=== PATIENT | male | born 1965 ===

== ENCOUNTER 2022-05-22 08:42 | Emergency (ER) | payer OTHER, SELFPAY ==
[2022-05-22 08:54] VITALS: BP 156/89; PULSE 63; RESP 12; TEMP 36.4; O2SAT 100
--- NOTE | 2022-05-22 09:04 | ED.EXTPRO ---
HPI - Extremity Problem General Chief complaint: Extremity Problem,Nontraumatic Stated complaint: Right Elbow Pain Time Seen by Provider: 05/22/22 09:13 Source: patient and RN notes reviewed Mode of arrival: ambulatory Limitations: no limitations History of Present Illness HPI Narrative: 57-year-old male presents to concern for several month history of pain and tenderness above his right elbow. 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 He reports he has been taking 800 mg ibuprofen 1000 mg Tylenol daily for chronic shoulder pain that has not been helping his current elbow pain. He reports he does repetitive movements that heavy lifting at work. He is right-handed. He denies any injury or trauma. He denies swelling, bruising, redness, warmth, open skin. He reports he is also worried his blood pressure is high, he normally does not high blood pressure, his heart attack in the past. He reports he follows up with primary care provider every 3 months. MD Complaint: extremity pain Related Data Home Medications Medication Instructions Recorded Confirmed rosuvastatin 20 mg tablet 20 mg DIRECTED 05/22/22 05/22/22 Allergies Allergy/AdvReac Type Severity Reaction Status Date / Time No Known Allergies Allergy Mild Verified 03/08/17 12:32 Review of Systems Review of Systems: CONSTITUTIONAL: Denies malaise, chills, sweats, or fever. CARDIOVASCULAR: Denies chest pain, palpitations, or edema. RESPIRATORY: Denies cough or dyspnea. SKIN: Denies rash or itching, bruising, redness, swelling. MUSCULOSKELETAL: Reports right elbow pain NEUROLOGIC: Denies numbness, weakness All systems reviewed & are unremarkable except as noted in HPI and below PMFSH Social History Social History Smoking status: Never smoker Comments At time of signature, agree with nursing past medical, surgical, social and family history. There is no relevant family history pertinent to the presenting complaint Exam Narrative: GENERAL: Well-appearing, well-nourished, and in no acute distress. HEAD: Normocephalic, atraumatic. EYES: PERRLA, conjunctivae clear NECK: Supple. CHEST: Speaks in full sentences. No respiratory distress. HEART: Regular rate and rhythm. Normal and equal peripheral pulses. EXTREMITIES: Right elbow, hand, digits have normal strength and sensation, normal range of motion. No edema or ecchymosis. 5/5 strength with digit flexion and extension. Normal sensation with sensitivity to light touch and pain. Mild medial tenderness above the elbow. No open wounds, no skin tenting, no devitalized tissue or atrophy, no trophic changes, no obvious deformity, alignment normal, nearby joints and structures intact. Distal pulses palpable and equal bilaterally, skin warm, dry, pink. Capillary refill less than 3 seconds. SKIN: Warm, dry, no rash. NEURO: Alert and oriented x3. PSYCH: Normal mood and affect Course Course Emergency Course: Patient is aware of diagnosis, understands and agrees to treatment plan. Anticipatory guidance given. Patient agrees to follow-up as directed and is aware of reasons to seek care at the emergency department. Portions of this record may have been created with voice recognition software Level of Care: Express Care Visit Vital Signs Vital signs: Vital Signs Temperature 97.5 F L 05/22/22 08:54 Pulse Rate 63 05/22/22 08:54 Respiratory Rate 12 05/22/22 08:54 Blood Pressure 156/89 H 05/22/22 08:54 Pulse Oximetry 100 05/22/22 08:54 Oxygen Delivery Room Air 05/22/22 08:54 Temperature 97.5 F L 05/22/22 08:54 Pulse Rate 63 05/22/22 08:54 Respiratory Rate 12 05/22/22 08:54 Blood Pressure 156/89 H 05/22/22 08:54 Pulse Oximetry 100 05/22/22 08:54 Oxygen Delivery Room Air 05/22/22 08:54 Reviewed. MDM - Extremity (Nontraumatic) MDM Narrative Medical decision making narrative: Patients pain is consist
== END 2022-05-22 09:40 | disposition home or self-care (01) ==
PROVIDERS: Emergency Provider Nurse Practitioner; PCP Internal Medicine
DX: M77.01 Medial epicondylitis, right elbow (principal); E78.00 Pure hypercholesterolemia, unspecified; Z95.5 Presence of coronary angioplasty implant and graft; I25.2 Old myocardial infarction
CPT/HCPCS: 99203; G0463

== ENCOUNTER 2022-05-25 12:48 | Emergency (ER) | payer OTHER, SELFPAY ==
[2022-05-25 13:58] VITALS: BP 130/88; PULSE 69; RESP 20; TEMP 36.6; O2SAT 100
--- NOTE | 2022-05-25 14:52 | ED.GENADULT ---
HPI - General Adult General Chief complaint: Unspecified Stated complaint: Right Elbow Pain Source: patient Mode of arrival: ambulatory Limitations: no limitations History of Present Illness HPI narrative: Patient presents for evaluation of right elbow pain. He is requesting a note to keep him off of work through Thursday of this next week. He was seen here on 05/22/2022 was diagnosed with epicondylitis. He was given some steroids which she has been taking for his pain. Pain has improved slightly. He also purchased a splint which he has been wearing. He rates his current pain as 6/10 in severity. Pain is worse with movement. He is right hand dominant. He does repetitive movements at work and believes this is contributing to his pain. No additional complaints or concerns. Related Data Home Medications Medication Instructions Recorded Confirmed rosuvastatin 20 mg tablet 20 mg DIRECTED 05/22/22 05/25/22 Allergies Allergy/AdvReac Type Severity Reaction Status Date / Time No Known Allergies Allergy Mild Verified 05/25/22 14:16 Review of Systems Review of Systems: CONSTITUTIONAL: Denies fever, chills, or sweats. EYES: Denies visual changes, redness, or discharge. ENT: Denies rhinorrhea, congestion, sore throat, or otalgia. CARDIOVASCULAR: Denies chest pain, palpitations, or edema. RESPIRATORY: Denies cough or dyspnea. GASTROINTESTINAL: Denies abdominal pain, nausea, vomiting, or diarrhea. GENITOURINARY: Denies dysuria or hematuria. SKIN: Denies rash or itching. MUSCULOSKELETAL: Reports right elbow pain. NEUROLOGIC: Denies headache, numbness, dizziness, or weakness. PSYCHIATRIC: Denies anxiety or depression. [facility] Past Medical History Medical History Hyperlipidemia Hypertension Myocardial infarction Surgical History Surgical History No pertinent past surgical history Family History Family History Mother Family history non-contributory Social History Social History Smoking status: Never smoker Substance use: never Additional occupation/education comments: Works in factory for [employer] Gender identity (if verbalized by the patient): Male Spiritual care concerns: No Exam Narrative: GENERAL: Well-appearing, well-nourished, and in no acute distress. HEAD: Normocephalic, atraumatic. EYES: PERRLA and EOMI. ENT: Nares clear, no rhinorrhea or epistaxis. Mucous membranes moist. Oropharynx without tonsillar hypertrophy exudate or other lesions. Bilateral TMs pearly andres nonbulging NECK: Supple. No adenopathy or masses. No carotid bruits or JVD CHEST: Clear to auscultation. No respiratory distress. No wheezes rales or rhonchi HEART: Regular rate and rhythm. No murmur heard. Normal peripheral pulses. ABDOMEN: Soft, nontender, nondistended, normal active bowel sounds. 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 Full range of motion intact to the right hand. 5/5 gross strength against resistance with flexion of the right elbow. Tenderness noted over right medial epicondyle. No swelling, crepitus or deformity SKIN: Warm, dry, no rash. NEURO: No focal deficits. Alert and oriented x3. PSYCH: Normal mood and affect. Course Course Emergency Course: This is a 57-year-old male who presented requesting a note to excuse her from work. He has evidence of epicondylitis. Will treat with topical diclofenac and rest. Note provided. Offered imaging which pt declined. He has an appt to see PCP at the end of this month. Advised he move appt up to this week. He should go to ER for loss of ROM or intractable pain. Pt in agreement with plan of care. Level of Care: Express Care Visit Vital Signs Vital signs: Vital Signs Temperature 36.6 C 05/25/22 13:58 Puls
== END 2022-05-25 15:09 | disposition home or self-care (01) ==
PROVIDERS: Emergency Provider Nurse Practitioner; PCP Internal Medicine
DX: M77.01 Medial epicondylitis, right elbow (principal); E78.5 Hyperlipidemia, unspecified; I10 Essential (primary) hypertension; I25.2 Old myocardial infarction
CPT/HCPCS: 99213; G0463

== ENCOUNTER 2023-05-01 10:04 | Emergency (ER) | payer OTHER, SELFPAY ==
--- NOTE | ~2023-05-01 | XR_ITS ---
EXAMINATION: XR shoulder RT min 2V INDICATION: Right shoulder pain TECHNIQUE: Four views of the right shoulder are submitted. COMPARISON: None FINDINGS: Normal alignment. No fracture. There is moderate glenohumeral and acromioclavicular joint o steoarthritis. Soft tissues are unremarkable. IMPRESSION: 1. Osteoarthritis without acute osseous abnormality. Reviewed, dictated and finalized at location B.
[2023-05-01 10:15] VITALS: BP 151/89; PULSE 61; RESP 16; TEMP 36.5; O2SAT 100
--- NOTE | 2023-05-01 10:50 | ED.UPPEXIN ---
HPI - Extremity Injury (Upper) General Chief Complaint: Extremity Injury, Upper Stated Complaint: Right shoulder History of Present Illness HPI narrative: Patient presents for evaluation of chronic problems to his right shoulder. Patient states he feels if he popped the shoulder out of place earlier has since put it back in place and would like an x-ray to confirm this. Related Data Home Medications Medication Instructions Recorded Confirmed rosuvastatin 20 mg tablet 20 mg DIRECTED 05/22/22 05/01/23 Allergies Allergy/AdvReac Type Severity Reaction Status Date / Time No Known Allergies Allergy Mild Verified 05/01/23 10:54 Review of Systems Review of Systems: CONSTITUTIONAL: Denies fever, chills, or sweats. EYES: Denies visual changes, redness, or discharge. ENT: Denies rhinorrhea, congestion, sore throat, or otalgia. CARDIOVASCULAR: Denies chest pain, palpitations, or edema. RESPIRATORY: Denies cough or dyspnea. GASTROINTESTINAL: Denies abdominal pain, nausea, vomiting, or diarrhea. GENITOURINARY: Denies dysuria or hematuria. SKIN: Denies rash or itching. MUSCULOSKELETAL: Denies back pain, joint pain, or myalgia. NEUROLOGIC: Denies headache, numbness, or weakness. PSYCHIATRIC: Denies anxiety or depression. [facility] Past Medical History Medical History (Updated 05/01/23 @ 10:56 by Marlee Yousif [facility]) Hyperlipidemia Hypertension Myocardial infarction Surgical History Surgical History No pertinent past surgical history Family History Family History Mother Family history non-contributory Social History Social History Smoking status: Never smoker Substance use: never Additional occupation/education comments: Works in [employer] for [employer] Gender identity (if verbalized by the patient): Male Spiritual care concerns: No Comments At time of signature, agree with nursing past medical, surgical, social and family history. There is no relevant family history pertinent to the presenting complaint Exam Narrative: GENERAL: Well-appearing, well-nourished, and in no acute distress. HEAD: Normocephalic, atraumatic. EYES: PERRLA and EOMI. ENT: Nares clear, no rhinorrhea or epistaxis. Mucous membranes moist. NECK: Supple. CHEST: Clear to auscultation. No respiratory distress. HEART: Regular rate and rhythm. No murmur heard. Normal peripheral pulses. ABDOMEN: Soft, nontender, nondistended, normal active bowel sounds. EXTREMITIES: Normal range of motion. No edema. NO SWELLING, BRUISING, SKIN CHANGES. SKIN INTACT. NORMAL RADIAL PULSE. NO DEFORMITY OF SHOULDER. NO CLAVICLE TENDERNESS. NORMAL UE SENSATION AND STRENGTH. ROM EVALUATED - CAN RAISE UE ABOVE SHOULDER, CAN ABDUCT, ADDUCT, EXTERNALLY ROTATE AND CAN INTERNALLY ROTATE AND RAISE THUMB UP THE SPINE. NO AC JOINT TENDERNESS, CAN CROSS ARM HORIZONTALLY AND PLACE HAND ON OPPOSITE SHOULDER, NO WINGING OF THE SCAPULA. SUPRASPINATUS APPEARS NORMAL WITH ARMS STRAIGHT OUT AT 30 DEGREES, THUMB DOWN , CAN ABDUCT AGAINST RESISTANCE. SKIN: Warm, dry, no rash. NEURO: No focal deficits. Alert and oriented x3. Blossom Coma Scale Eye Opening: Spontaneous 4 Colver Coma Scale Motor: Obeys Commands 6 Blossom Coma Scale Verbal: Oriented 5 Colver Coma Scale Total 15 Course Course Level of Care: Express Care Visit Vital Signs Vital signs: Vital Signs Temperature 36.5 C 05/01/23 10:15 Pulse Rate 61 05/01/23 10:15 Respiratory Rate 16 05/01/23 10:15 Blood Pressure 151/89 H 05/01/23 10:15 Pulse Oximetry 100 05/01/23 10:15 Oxygen Delivery Room Air 05/01/23 10:15 Temperature 36.5 C 05/01/23 10:15 Pulse Rate 61 05/01/23 10:15 Respiratory Rate 16 05/01/23 10:15 Blood Pressure 151/89 H 05/01/23 10:15 Pulse Oximetry 100 05/01/23 10:15 Oxygen Del
== END 2023-05-01 11:20 | disposition home or self-care (01) ==
PROVIDERS: Emergency Provider Nurse Practitioner Family; PCP Internal Medicine
DX: S40.011A Contusion of right shoulder, initial encounter (principal); G89.29 Other chronic pain; M25.511 Pain in right shoulder; E78.5 Hyperlipidemia, unspecified; I10 Essential (primary) hypertension; I25.2 Old myocardial infarction; X58.XXXA Exposure to other specified factors, initial encounter
CPT/HCPCS: 73030; 99213; G0463

== ENCOUNTER 2024-04-14 13:20 | Emergency (ER) | payer OTHER, SELFPAY ==
[2024-04-14 13:30] VITALS: BP 197/82; PULSE 74; RESP 20; TEMP 36.8; O2SAT 99
--- NOTE | 2024-04-14 13:31 | ED.LOWEXIN ---
HPI - Extremity Injury (Lower) General Chief Complaint: Extremity Injury, Lower Stated Complaint: left knee pain/fell down stairs Time Seen by Provider: 04/14/24 13:31 Source: patient Mode of arrival: ambulatory Limitations: no limitations History of Present Illness HPI Narrative: 59-year-old male presents with complaint of left knee pain. Patient states this morning he was walking up his stairs while carrying a laundry basket and toes became stuck on step causing him to fall forward onto left knee. He states he then slid down several steps landing on the left knee multiple times. Patient arrived using 1 crutch from home. Reports he cannot bear weight on to left knee. Came today for a work note. States he is not able to work today or tomorrow but needs a note to release him. Does not want a x-ray today. Plans to follow-up with his primary care physician for an outpatient x-ray ordered If knee pain is not improving. All systems reviewed and negative except as noted above. Related Data Home Medications Medication Instructions Recorded Confirmed rosuvastatin 20 mg tablet 20 mg DIRECTED 05/22/22 05/01/23 diclofenac sodium 75 mg mg PO 04/14/24 tablet,delayed release rosuvastatin 20 mg tablet mg 04/14/24 Allergies Allergy/AdvReac Type Severity Reaction Status Date / Time No Known Allergies Allergy Mild Verified 05/01/23 10:54 Review of Systems Review of Systems: CONSTITUTIONAL: Denies fever, chills, or sweats. EYES: Denies visual changes, redness, or discharge. ENT: Denies rhinorrhea, congestion, sore throat, or otalgia. CARDIOVASCULAR: Denies chest pain, palpitations, or edema. RESPIRATORY: Denies cough or dyspnea. GASTROINTESTINAL: Denies abdominal pain, nausea, vomiting, or diarrhea. GENITOURINARY: Denies dysuria or hematuria. SKIN: Denies rash or itching. MUSCULOSKELETAL: Reports pain to left knee. NEUROLOGIC: Denies headache, numbness, or weakness. PSYCHIATRIC: Denies anxiety or depression. All other systems reviewed are negative, except as documented in HPI. [facility] Past Medical History Medical History (Updated 04/14/24 @ 13:45 by Melany Shahid NP) Hyperlipidemia Hypertension Myocardial infarction Surgical History Surgical History No pertinent past surgical history Family History Family History Mother Family history non-contributory Social History Social History Smoking status: Never smoker Substance use: never Additional occupation/education comments: Works in [employer] for [employer] Gender identity (if verbalized by the patient): Male Spiritual care concerns: No Comments At time of signature, agree with nursing past medical, surgical, social and family history. There is no relevant family history pertinent to the presenting complaint. Exam Narrative: GENERAL: This is a well-nourished, well-developed patient, in no apparent distress. HEAD: normocephalic, atraumatic. EYES: PERRL. Sclera clear/white. Vision is grossly intact. EARS: External ears normal NOSE: External nose normal NECK: Neck supple, non-tender without lymphadenopathy, masses or thyromegaly. CARDIOVASCULAR: Regular rate and rhythm without murmurs, gallops, or rubs. RESPIRATORY: Clear to auscultation. Breath sounds equal bilaterally. No wheezes, rales, or rhonchi. SKIN: warm, Dry, intact with no suspicious lesions or rash, good texture and turgor. NEURO: awake, alert, and oriented to person, place and time. There were no obvious focal neurologic abnormalities. EXTREMITIES: Tenderness to medial and anterior aspect of left knee with mild swelling. Anterior and posterior drawer testing Normal. Decreased range of motion due to pain Course Course Level of Care: Express Care Visit Vital Signs Vital signs:
== END 2024-04-14 13:52 | disposition home or self-care (01) ==
PROVIDERS: Emergency Provider Nurse Practitioner Family; PCP Internal Medicine
DX: S80.02XA Contusion of left knee, initial encounter (principal); I10 Essential (primary) hypertension; E78.5 Hyperlipidemia, unspecified; I25.2 Old myocardial infarction; Z79.899 Other long term (current) drug therapy; W10.9XXA Fall (on) (from) unspecified stairs and steps, initial encounter
CPT/HCPCS: 99212; G0463